=== PATIENT | male | born 1965 | race Caucasian/White ===

== ENCOUNTER → 2024-02-09 | Outpatient (CLI) | payer BC ==
[2024-02-09 11:07] VITALS: BP 127/77; PULSE 88; RESP 16
--- NOTE | 2024-02-09 14:51 | P.PAINPG ---
PQRS Measure Charge Sheet Comment: HISTORY OF PRESENT ILLNESS: A 58 yr old female as a referral from Dr Reyes presents today w severe and chronic neck pain > 3 mo secondary to DDD, spondylosis and facet arthropathy without myelopathy for evaluation. Pt states pain level is provoked at 8 /10 in intensity, constant, localized in the cervical spine, predominantly axial, sharp in character w occasional shooting pain towards the UEs, R> L. Pain is provoked by reading. Pain is alleviated by PT x 6 wks which ended in December 2023, physician guided home exercises/ stretches daily since December 2023, ice, medications (Ibu), topical BioFreeze, repositioning and rest . Cervical disability score at 25. PMH: OA, Hyperlipidemia, GERD, RLS PSH: Quradiceps tendon repair, ORIF, L Knee Arthroscopy SH: Daily tobacco use, Occasional ETOH use, No illicit drug use FH: Non contributory All: See list Meds: See list REVIEW OF ORGAN SYSTEMS: CONSTITUTIONAL: No fevers or chills. No recent weight loss. NEUROLOGICAL: + numbness and tingling along the distal extremities. No seizure disorders or headaches. MUSCULOSKELETAL: + pain PSYCHIATRIC: Denies current depression or suicidal thoughts. Physical Examinations : Constitutional : Cooperative , not in acute distress . Neurologic : Cranial nerve II to XII intact. No focal neurological deficits. Psychiatric : alert & oriented x 3. Matching mood & appropriate affect. Judgment & insight intact. Musculoskeletal : Cervical Spine Motor strength in the deltoid and biceps: Normal right side. Normal Left side Motor strength biceps and the wrist extensors: Normal right side . Normal left side Motor strength in the triceps muscle: Normal right side. Normal left side Deep tendon reflexes: Normal at the biceps. Normal at Brachioradialis. Normal at triceps Vertebral body tenderness to deep palpation over C6 Cervical facet loading test: positive bilaterally Spurling test: positive bilaterally Neck distraction test: positive bilaterally C6-C7 Shelia sign: positive bilaterally Lumbar spine Motor strength lower extremities ,thigh and legs 5/5 Right side , 5/5 Left side Deep tendon reflexes : Normal Knee Jerk. Normal Ankle Jerk Vertebral body tenderness over Chase Test positive Lumbar facet Loading Test: positive Right / positive Left Range of motion of the lumbar spine Flexion 30 degrees, extension 10 degrees Straight Leg Raise test: Left/ Right positive at degrees Kaylah test: positive right / positive left. Severe tenderness over the Sacroiliac joint on the Right / Left sides Gaenslen test: positive bilaterally Seated flexion test: positive bilaterally. Sacral spine : Severe tenderness over the Sacroiliac joint: right side / left side Range of motion: Flexion of the lumbar spine <60 degrees Range of motion: Extension of the lumbar spine <20 degrees Gaenslen's Test positive Kaylah test: positive right side / left side Thigh Thrust Test Sacral Thrust Test Imaging: MRI non contrast of the cervical spine from 01/06/24 reviewed Assessment/ Plan : Cervical spinal stenosis, Cervical DDD Recommendation of STEPHANIE C6-C7 #1. May need a series of injections for optimal pain relief. Risks, benefits of procedure discussed and patient verbalized understanding. Admits to anti- coagulant use or medical history of diabetes. Protocol for discontinuation/ continuation of medications piyush procedure discussed. All questions answered. I have spent greater than 30 minutes on patient care today. Dr Del Rio was available by phone for the evaluation of this patient. The time was used to re view the medical records including relevant urine studies and Prescription history (MAPs), review of the available imaging, evaluation and examination of the patient, coordination of care with the medical staff and if applicable referring physicians, as well as creation of the medical record Controlled Substance Measures - Controlled Substance Measures Is patient prescribed a controlled substance at discharge?: No
== END ==
LOC: PNWHC3 09:27
PROVIDERS: ATTEND Specialist
DX: M50.323 Other cervical disc degeneration at C6-C7 level (principal); M48.02 Spinal stenosis, cervical region; Z72.0 Tobacco use
CPT/HCPCS: 99211

== ENCOUNTER 2024-03-07 11:36 | Day surgery (SDC) | payer BC ==
[2024-03-06 10:03] VITALS: BMI 26.5
[~2024-03-07 11:36] MED LIST: LACTATED RINGERS 1,000 ML IV SCH
[2024-03-07 11:54] VITALS: TEMP 98.6
[2024-03-07] MEDS ORDERED: DEXAMETHASONE SOD PHOSPHATE 10 MG/ML 1 ML VIAL ONE (12:53)
[2024-03-07] MEDS ORDERED: IOPAMIDOL M200 10 ML VIAL ONE (12:53)
[2024-03-07 13:11] VITALS: RESP 18
--- NOTE | 2024-03-07 13:30 | P.PCN ---
Date of Procedure: 03/07/24 Description of Procedure: Date of Procedure: 03/07/24 Description of Procedure: PROCEDURE 1. Cervical epidural steroid injection under fluoroscopic guidance C6/7 2. Cervical epidurogram. PREOPERATIVE DIAGNOSIS: Cervical radiculopathy POSTOPERATIVE DIAGNOSIS: Cervical radiculopathy Imaging: Fluoroscopy was used, images where saved to the medical record ANESTHESIA: local only PROCEDURE DESCRIPTION / TECHNIQUE: The patient was seen and identified in the preoperative area. Risks, benefits, and alternatives were discused with the patient and the patient has consented to the procedure. Risks of the procedure include potential for bleeding, infection, nerve damage, and incomplete pain relief were discussed with the patient. All questions were answered for the patient Patient was taken to the OR and time out was completed. The patient was placed in the prone position on the procedure table. A pillow was placed under the patients chest to increase the cervical interlaminar space. The cervical area was prepped and draped in the usual sterile fashion. Vital signs were closely monitored during the procedure. Using anterior-posterior fluoroscopy, the C6-C7 interlaminar space was identified and the skin over this site was marked and then infiltrated with 1% lidocaine subcutaneously. Subsequently, a 20-gauge 3-1/2-inch Tuohy epidural needle was inserted and advanced toward the epidural space by means of the [id number] technique and guided by AP and lateral fluoroscopy. The correct needle position in the epidural space was verified with the injection of 1 mL of the water soluble contrast dye Isovue-180 and observing an excellent epidurogram with the epidural spread of the dye, after negative aspiration for blood and CSF and in the absence of paresthesias. Again after negative aspiration, a mixture containing 10 mg Dexamethasone and 2 ml of preservative- free normal saline injected and a washout of epidurogram was seen. Needle was withdrawn intact, skin was cleansed, and bandages were applied. Complications: none. Disposition: patient was placed in supine position and transferred to the recovery room area in stable condition and there was no evidence of upper or lower extremity motor or sensory deficit after the procedure patient was discharged from recovery room after discharge criteria met and home discharge instructions was given by the staff and patient will follow with the pain as directed.
[2024-03-07 13:45] VITALS: BP 128/75; PULSE 73
--- NOTE | 2024-03-07 14:01 | FL ---
Fluoroscopy History: M54.12 CERVICAL RADICULOPATHY CERVICAL RADICULOPATHY DR. MONTEMAYOR FL TIME- 4.5 SEC DAP- [id number] mGym2
== END 2024-03-07 13:46 | disposition home or self-care (01) ==
LOC: ORPAIN 11:36
PROVIDERS: ATTEND Hospitalist
DX: M54.12 Radiculopathy, cervical region (principal); Z79.1 Long term (current) use of non-steroidal anti-inflammatories (NSAID)
CPT/HCPCS: 62321

== ENCOUNTER → 2024-03-29 | Outpatient (CLI) | payer BC | LOC: PNWHC3 08:36 | PROVIDERS: ATTEND Specialist | DX: M47.22 Other spondylosis with radiculopathy, cervical region (principal) | CPT/HCPCS: 99211 ==

== ENCOUNTER → 2024-04-18 | Day surgery (SDC) | payer BC ==
[~2024-04-18] MED LIST changes: +DEXAMETHASONE SOD PHOSPHATE 10 MG/ML 1 ML VIAL ONE; +IOPAMIDOL M300 15ML VIAL ONE; +ROPIVACAINE 5MG/ML 20ML VIAL ONE
[2024-04-18 07:17] VITALS: TEMP 98.1
--- NOTE | 2024-04-18 08:48 | P.PCN ---
Description of Procedure: PROCEDURE 1. Injection of radio contrast material into cervical epidural space, cervical epidurogram, interpretation of cervical epidurogram, Cervical epidural steroid injection under fluoroscopic guidance, C6-7 (fluoroscopy images available in the radiology department ) 2. Cervical epidurogram. PREOPERATIVE DIAGNOSIS: 1- Cervical Degenerative Disc Diseases 2- Cervical radiculopathy., 3-cervical spondylosis with cervical Facet arthropathy without myelopathy.4-cervical spinal stenosis POSTOPERATIVE DIAGNOSIS: : 1- Cervical Degenerative Disc Diseases , 2- Cervical radiculopathy. 3-,cervical spondylosis with cervical Facet arthropathy without myelopathy. 4-cervical spinal stenosis ANESTHESIA: Local anesthetics infiltration. In the OR continuous pulse ox, EKG, blood pressure and verbal communication was maintained. EBL : None PROCEDURE INDICATION: The patient with neck pain and radiculitis unresponsive to conservative treatment consents for procedure. Discussed the procedure, alternatives and possible complications which may include increased pain, infection, bleeding, nerve damage, paralysis all of which could be permanent. Patient understands and all questions were answered. PROCEDURE DESCRIPTION : After getting consent patient was taken to the OR , positioned in prone position and time out was completed. A pillow was placed under the patients chest to increase the cervical interlaminar space. The cervical area was prepped and draped in the usual sterile fashion. Using anterior-posterior fluoroscopy, interlaminar space was identified and the skin over this site was marked and then infiltrated with 1% lidocaine subcutaneously. Subsequently, a 20-gauge 3-1/2-inch Tuohy epidural needle was inserted and advanced toward the epidural space with the loss of resistance technique using a syringe filled with preservative-free normal saline and guided by AP and lateral fluoroscopy. Negative CSF, negative blood, negative paresthesia. The correct needle position in the epidural space was verified with the injection of 2 mL of the water soluble contrast dye Isovue-200 and observing an excellent epidurogram with the epidural spread of the dye, after repeat negative aspiration 3 mL solution was injected which consists of 1 mL of preservative-free normal saline mixed with 2 mL of 20 mg dexamethasone and a washout of epidurogram was seen. Needle was withdrawn intact, skin was cleansed, and bandages were applied. Disposition: Patient tolerated the procedure well. No complication. Patient was placed in supine position and transferred to the recovery room area in stable condition and there was no evidence of upper or lower extremity motor or sensory deficit after the procedure patient was discharged from recovery room after discharge criteria met and home discharge instructions was given by the staff and patient will follow with the pain clinic in 2-4 weeks
[2024-04-18 08:53] VITALS: BP 137/86; PULSE 79; RESP 16
--- NOTE | 2024-05-16 18:20 | FL ---
EXAMINATION TYPE: FL guided pain mgmt statistic DATE OF EXAM: 04/18/2024 8:41 AM COMPARISON: Pre Operative Images if available both CT/MRI or plain film CLINICAL INDICATION: Male, 58 years old with history of CERVICAL EPI; TECHNIQUE: FL guided pain mgmt statistic, multiple fluoroscopic images provided for procedure. Total fluoroscopy time: 6.8 seconds Total submitted images to PACS: 2 DAP: [id number] mGym2 Gycm2 uGym2 cGycm2 or equivalent. FINDINGS: Fluoroscopic images during injection for pain management demonstrate multilevel degeneration changes throughout the spine. No evidence for fracture. No acute process identified. IMPRESSION: 1. No evidence for intraoperative complication. 2. Please see the operative/procedural note for further details. [facility], , 05/16/2024 6:17 PM
== END ==
LOC: ORPAIN 06:57
PROVIDERS: ATTEND Pain Medicine Interventional Pain Medicine
DX: M47.22 Other spondylosis with radiculopathy, cervical region (principal); M48.02 Spinal stenosis, cervical region; M50.123 Cervical disc disorder at C6-C7 level with radiculopathy
CPT/HCPCS: 62321

== ENCOUNTER → 2024-05-10 | Outpatient (CLI) | payer BC ==
[2024-05-10 09:38] VITALS: BP 127/79; PULSE 84; RESP 16
--- NOTE | 2024-05-10 15:31 | P.PAINPG ---
PQRS Measure Charge Sheet Comment: HISTORY OF PRESENT ILLNESS: A 58 yr old female presents today w severe and chronic neck pain > 3 mo secondary to radiculpathy, spondylosis and facet arthropathy without myelopathy for evaluation s/p STEPHANIE C6-C7 #2. Pt states he experienced 60 % pain relief x 3 wks s/p procedure. Pt states pain level is provoked at 8 /10 in intensity, constant, localized in the cervical spine, predominantly axial, sharp in character w occasional shooting pain towards the UEs, R> L. Pain is provoked by reading. Pain is alleviated by PT x 6 wks which ended in December 2023, physician guided home exercises/ stretches daily since December 2023, traction w his chiropractor semi monthly since Mar 2024 till present, ice, medications, t opical, repositioning and rest . Interventional procedures include STEPHANIE C6-C7 x2 Medications include Ibu, BioFreeze REVIEW OF ORGAN SYSTEMS: CONSTITUTIONAL: No fevers or chills. No recent weight loss. NEUROLOGICAL: + numbness and tingling along the distal extremities. No seizure disorders or headaches. MUSCULOSKELETAL: + pain PSYCHIATRIC: Denies current depression or suicidal thoughts. Physical Examinations : Constitutional : Cooperative , not in acute distress . Neurologic : Cranial nerve II to XII intact. No focal neur ological deficits. Psychiatric : alert & oriented x 3. Matching mood & appropriate affect. Judgment & insight intact. Musculoskeletal : Cervical Spine Motor strength in the deltoid and biceps: Normal right side. Normal Left side Motor strength biceps and the wrist extensors: Normal right side . Normal left side Motor strength in the triceps muscle: Normal right side. Normal left side Deep tendon reflexes: Normal at the biceps. Normal at Brachioradialis. Normal at triceps Vertebral body tenderness to deep palpation over C6 Cervical facet loading test: positive bilaterally Spurling test: positive bilaterally Neck distraction test: positive bilaterally C6-C7 Shelia sign: positive bilaterally Lumbar spine Motor strength lower extremities ,thigh and legs 5/5 Right side , 5/5 Left side Deep tendon reflexes : Normal Knee Jerk. Normal Ankle Jerk Vertebral body tenderness over Chase Test positive Lumbar facet Loading Test: positive Right / positive Left Range of motion of the lumbar spine Flexion 30 degrees, extension 10 degrees Straight Leg Raise test: Left/ Right positive at degrees Kaylah test: positive right / positive left. Severe tenderness over the Sacroiliac joint on the Right / Left sides Gaenslen test: positive bilaterally Seated flexion test: positive bilaterally. Sacral spine : Severe tenderness over the Sacroiliac joint: right side / left side Range of motion: Flexion of the lumbar spine <60 degrees Range of motion: Extension of the lumbar spine <20 degrees Gaenslen's Test positive Kaylah test: positive right side / left side Thigh Thrust Test Sacral Thrust Test Imaging: MRI non contrast of the cervical spine from 01/06/24 reviewed Assessment/ Plan : Cervical spinal stenosis, Cervical radiculopathy Recommendation of STEPHANIE C6-C7 #3. May need a series of injections for optimal pain relief. Risks, benefits of procedure discussed and patient verbalized understanding. Admits to anti- coagulant use or medical history of diabetes. Protocol for discontinuation/ continuation of medications piysuh procedure discussed. All questions answered. I have spent greater than 30 minutes on patient care today. Dr Del Rio was available by phone for the evaluation of this patient. The time was used to review the medical records including relevant urine studies and Prescription history (MAPs), review of the available imaging, evaluation and examination of the patient, coordination of care with the medical staff and if applicable refer ring physicians, as well as creation of the medical record - Pain Location Bilateral Arm Pharmacological Interventions: PRN Medication PQRS Narrative: Hx Alcohol Use (MH) No Home Medications: Ambulatory Orders Ibuprofen [Motrin] 800 mg PO Q8H PRN 03/06/24 Pantoprazole [Protonix] 40 mg PO DAILY 03/06/24 Controlled Substance Measures - Controlled Substance Measures Is patient prescribed a controlled substance at discharge?: No
== END ==
LOC: PNWHC3 09:11
PROVIDERS: ATTEND Specialist
DX: M54.12 Radiculopathy, cervical region
CPT/HCPCS: 99211

== ENCOUNTER 2024-05-30 07:27 | Day surgery (SDC) | payer BC ==
[2024-05-26 14:36] VITALS: BMI 26.6
[~2024-05-30 07:27] MED LIST changes: -DEXAMETHASONE SOD PHOSPHATE 10 MG/ML 1 ML VIAL ONE; -IOPAMIDOL M300 15ML VIAL ONE; -ROPIVACAINE 5MG/ML 20ML VIAL ONE
[2024-05-30 07:55] VITALS: TEMP 98.1
[2024-05-30] MEDS ORDERED: IOPAMIDOL M200 10 ML VIAL ONE (08:18)
[2024-05-30] MEDS ORDERED: DEXAMETHASONE SOD PHOSPHATE 10 MG/ML 1 ML VIAL ONE (08:18)
--- NOTE | 2024-05-30 08:24 | P.PCN ---
Date of Procedure: 05/30/24 Procedure(s) Performed: . PROCEDURE 1. Cervical epidural steroid injection under fluoroscopic guidance, C6-7 (fluoroscopy images available in the radiology department ) 2. Cervical epidurogram. PREOPERATIVE DIAGNOSIS: 1- Cervical Degenerative Disc Diseases 2- Cervical radiculopathy. POSTOPERATIVE DIAGNOSIS: : 1- Cervical Degenerative Disc Diseases , 2- Cervical radiculopathy. ANESTHESIA: Local anesthesia with lidocaine 1% 3 ml only EBL 0 PROCEDURE INDICATION: The patient with neck pain and radiculitis unresponsive to conservative treatment consents for procedure. PROCEDURE DESCRIPTION / TECHNIQUE: The patient was seen and identified in the preoperative area. Risks, benefits, complications, including but not limited to infections ,bleeding , allergic reactions to the medications ,and not complete pain releife, and alternatives were discussed with the patient, the patient agreed to proceed with the procedure and signed the consent. Patient was taken to the OR and time out was completed. The patient was placed in the prone position on the procedure table. A pillow was placed under the patients chest to increase the cervical interlaminar space. The cervical area was prepped and draped in the usual sterile fashion. Vital signs were closely monitored during the procedure. Using anterior-posterior fluoroscopy, the C6-7 interlaminar space was identified and the skin over this site was marked and then infiltrated with 1% lidocaine subcutaneously. Subsequently, a 20-gauge 3-1/2-inch Tuohy epidural needle was inserted and advanced toward the epidural space by means of the ``hanging-drop technique and guided by AP and lateral fluoroscopy. The correct needle position in the epidural space was verified with the injection of 2 mL of the water soluble contrast dye Isovue-200 and observing an excellent epidurogram with the epidural spread of the dye, after negative aspiration for blood and CSF and in the absence of paresthesias. then, mixture containing 20 mg Dexamethasone and 2 ml of preservative-free normal saline injected and a washout of epidurogram was seen. Needle was withdrawn intact, skin was cleansed, and bandages were applied. Complications= none. Disposition= patient was placed in supine position and transferred to the recovery room area in stable condition and there was no evidence of upper or lower extremity motor or sensory deficit after the procedure patient was discharged from recovery room after discharge criteria met and home discharge instructions was given by the staff and patient will follow with the pain clinic in 2-4 weeks
[2024-05-30 08:28] VITALS: RESP 16
[2024-05-30 08:40] VITALS: BP 129/81; PULSE 83
--- NOTE | 2024-05-30 08:43 | FL ---
EXAMINATION TYPE: FL guided pain mgmt statistic DATE OF EXAM: 05/30/2024 8:28 AM COMPARISON: Pre Operative Images if available both CT/MRI or plain film CLINICAL INDICATION: Male, 58 years old with history of PAIN; TECHNIQUE: FL guided pain mgmt statistic, multiple fluoroscopic images provided for procedure. Total fluoroscopy time: 1.5 seconds Total submitted images to PACS: 1 DAP: 0.30383 mGym2 Gycm2 uGym2 cGycm2 or equivalent. FINDINGS: Fluoroscopic images during injection for pain management demonstrate multilevel degeneration changes throughout the spine. No evidence for fracture. No acute process identified. IMPRESSION: 1. No evidence for intraoperative complication. 2. Please see the operative/procedural note for further details. [facility], , 05/30/2024 8:41 AM
== END 2024-05-30 08:41 | disposition home or self-care (01) ==
LOC: ORPAIN 07:27
PROVIDERS: ATTEND Specialist
DX: M50.123 Cervical disc disorder at C6-C7 level with radiculopathy (principal)
CPT/HCPCS: 62321

== ENCOUNTER → 2024-06-21 | Outpatient (CLI) | payer BC ==
[2024-06-21 09:58] VITALS: BP 145/82; PULSE 70; RESP 16; TEMP 97.5
--- NOTE | 2024-06-21 15:14 | P.PAINPG ---
PQRS Measure Charge Sheet Comment: HISTORY OF PRESENT ILLNESS: A 58 yr old female presents today w severe and chronic neck pain > 3 mo secondary to radiculpathy, spondylosis and facet arthropathy without myelopathy for evaluation s/p STEPHANIE C6-C7 #3. Pt states he experienced 80 % pain relief x 3 wks s/p procedure. Pt states pain level is provoked at 2-5 /10 in intensity, constant, localized in the cervical spine, predominantly axial, sharp in character w occasional shooting pain towards the UEs, R> L. Pain is provoked by reading. Pain is alleviated by PT x 6 wks which ended in December 2023, physician guided home exercises/ stretches daily since December 2023, traction w his chiropractor semi monthly since Mar 2024 till present, ice, medications, topical, repositioning and rest . Interventional procedures include STEPHANIE C6-C7 x3 Medications include Ibu, BioFreeze REVIEW OF ORGAN SYSTEMS: CONSTITUTIONAL: No fevers or chills. No recent weight loss. NEUROLOGICAL: + numbness and tingling along the distal extremities. No seizure disorders or headaches. MUSCULOSKELETAL: + pain PSYCHIATRIC: Denies current depression or suicidal thoughts. Physical Examinations : Constitutional : Cooperative , not in acute distress . Neurologic : Cranial nerve II to XII intact. No focal ne urological deficits. Psychiatric : alert & oriented x 3. Matching mood & appropriate affect. Judgment & insight intact. Musculoskeletal : Cervical Spine Motor strength in the deltoid and biceps: Normal right side. Normal Left side Motor strength biceps and the wrist extensors: Normal right side . Normal left side Motor strength in the triceps muscle: Normal right side. Normal left side Deep tendon reflexes: Normal at the biceps. Normal at Brachioradialis. Normal at triceps Vertebral body tenderness to deep pa lpation over C6 Cervical facet loading test: positive bilaterally Spurling test: positive bilaterally Neck distraction test: positive bilaterally C6-C7 Shelia sign: positive bilaterally Lumbar spine Motor strength lower extremities ,thigh and legs 5/5 Right side , 5/5 Left side Deep tendon reflexes : Normal Knee Jerk. Normal Ankle Jerk Vertebral body tenderness over Chase Test positive Lumbar facet Loading Test: positive Right / positive Left Range of motion of the lumbar spine Flexion 30 degrees, extension 10 degrees Straight Leg Raise test: Left/ Right positive at degrees Kaylah test: positive right / positive left. Severe tenderness over the Sacroiliac joint on the Right / Left sides Jeannielen test: positive bilaterally Seated flexion test: positive bilaterally. Sacral spine : Severe tenderness over the Sacroiliac joint: right side / left side Range of motion: Flexion of the lumbar spine <60 degrees Range of motion: Extension of the lumbar spine <20 degrees Gaenslen's Test positive Kaylah test: positive right side / left side Thigh Thrust Test Sacral Thrust Test Imaging: MRI non contrast of the cervical spine from 01/06/24 reviewed Assessment/ Plan : Cervical spinal stenosis, Cervical radiculopathy Will manage residual pain and may RTC on an as needed basis. All questions answered. I have spent greater than 30 minutes on patient care today. Dr Del Rio was available by phone for the evaluation of this patient. The time was used to review the medical records including relevant urine studies and Prescription history (MAPs), review of the available imaging, evaluation and examination of the patient, coordination of care with the medical staff and if applicable referring physicians, as well as creation of the medical record PQRS Narrative: Hx Alcohol Use (MH) No Home Medications: Ambulatory Orders Ibuprofen [Motrin] 800 mg PO Q8H PRN 03/06/24 Pantoprazole [Protonix] 40 mg PO DAILY 03/06/24 Controlled Substance Measures - Controlled Substance Measures Is patient prescribed a controlled substance at discharge?: No
== END ==
LOC: PNWHC3 09:04
PROVIDERS: ATTEND Specialist
DX: M47.22 Other spondylosis with radiculopathy, cervical region (principal); M48.02 Spinal stenosis, cervical region
CPT/HCPCS: 99211

== ENCOUNTER → 2024-11-23 | Outpatient (CLI) | payer BC ==
[2024-11-23 14:10] VITALS: BP 131/83; PULSE 89; RESP 19; TEMP 96.8
--- NOTE | 2024-11-23 14:55 | XR ---
EXAMINATION TYPE: XR knee limited RT DATE OF EXAM: 11/23/2024 CLINICAL INDICATION: Male, 58 years old with history of M17.9, pain TECHNIQUE: Frontal and lateral views of the knee were obtained. COMPARISON: None. FINDINGS: There is no acute fracture/dislocation evident in the right knee. Bchj-ec-zlrexowd tricomp artment joint space loss without significant spurring. There is bony projection anterior superior pa tella at the distal quadriceps tendon insertion. The overlying soft tissue appears unremarkable. IMPRESSION: As above. [facility], , 11/23/2024 2:52 PM
--- NOTE | 2024-11-23 15:51 | P.PAINPG ---
Objective - Vital Signs Vital signs: Intake & Output 11/22/24 11/23/24 11/23/24 18:59 06:59 18:59 Weight 81.647 kg PQRS Measure Charge Sheet Comment: HISTORY OF PRESENT ILLNESS: A 58 yr old female presents today w severe and chronic R knee and neck pain > 3 mo secondary to R Knee DJD, radiculpathy, spondylosis and facet arthropathy without myelopathy for evaluation. Pt states pain level is provoked at 9-10 /10 in intensity, constant, localized in the cervical spine, predominantly axial, sharp in character w occasional shooting pain towards the UEs, R> L. Pain is provoked by reading. Pain is alleviated by PT x 6 wks which ended in December 2023, physician guided home exercises/ stretches daily since December 2023, traction w his chiropractor semi monthly since Mar 2024 till present, ice, medications, topical, Cannabis use, repositioning and rest . Interventional procedures include STEPHANIE C6-C7 x3 Medications include Ibu, BioFreeze, Cannabis use REVIEW OF ORGAN SYSTEMS: CONSTITUTIONAL: No fevers or chills. No recent weight loss. NEUROLOGICAL: + numbness and tingling along the distal extremities. No seizure disorders or headaches. MUSCULOSKELETAL: + pain PSYCHIATRIC: Denies current depression or suicidal thoughts. Physical Examinations : Constitutional : Cooperative , not in acute distress . Neurologic : Cranial nerve II to XII intact. No focal neurological deficits. Psychiatric : alert & oriented x 3. Matching mood & appropriate affect. Judgment & insight intact. Musculoskeletal : Cervical Spine Motor strength in the deltoid and biceps: Normal right side. Normal Left side Motor strength biceps and the wrist extensors: Normal right side . Normal left side Motor strength in the triceps muscle: Normal right side. Normal left side Deep tendon reflexes: Normal at the biceps. Normal at Brachioradialis. Normal at triceps Vertebral body tenderness to deep palpation over C6 Cervical facet loading test: positive bilaterally Spurling test: positive bilaterally Neck distraction test: positive bilaterally C6-C7 Shelia sign: positive bilaterally Lumbar spine +R Knee diffuse TTP Motor strength lower extremities ,thigh and legs 5/5 Right side , 5/5 Left side Deep tendon reflexes : Normal Knee Jerk. Normal Ankle Jerk Vertebral body tenderness over Chase Test positive Lumbar facet Loading Test: positive Right / positive Left Range of motion of the lumbar spine Flexion 30 degrees, extension 10 degrees Straight Leg Raise test: Left/ Right positive at degrees Kaylah test: positive right / positive left. Severe tenderness over the Sacroiliac joint on the Right / Left sides Gaenslen test: positive bilaterally Seated flexion test: positive bilaterally. Sacral spine : Severe tenderness over the Sacroiliac joint: right side / left side Range of motion: Flexion of the lumbar spine <60 degrees Range of motion: Extension of the lumbar spine <20 degrees Gaenslen's Test positive Kaylah test: positive right side / left side Thigh Thrust Test Sacral Thrust Test Imaging: MRI non contrast of the cervical spine from 01/06/24 reviewed Assessment/ Plan : Cervical spinal stenosis, Cervical radiculopathy, R Knee DJD Recommendation of R knee x ray M17.9. Short course of Kite 10/325mg #18 NR. Use, side effects, adverse reactions and safe storage discussed. Patient aware to discontinue cannabis use while on Kite. Acknowledged understanding. All questions answered. I have spent greater than 30 minutes on patient care today. Dr Del Rio was available by phone for the evaluation of this patient. The time was used to review the medical records including relevant urine studies and Prescription history (MAPs), review of the available imaging, evaluation and examination of the patient, coordination of care with the medical staff and if applicable referring physicians, as well as creation of the medical record PQRS Narrative: Hx Alcohol Use (MH) No Home Medications: Ambulatory Orders Ibuprofen [Motrin] 800 mg PO Q8H PRN 03/06/24 Pantoprazole [Protonix] 40 mg PO DAILY 03/06/24 HYDROcodone/APAP 10-325MG [Kite 10-325] 1 tab PO Q4HR PRN 3 Days #18 tab 11/23/24 Controlled Substance Measures - Controlled Substance Measures Is patient prescribed a controlled substance at discharge?: Yes When asked, does pt state using other controlled substances?: No If prescribed controlled substance>3 days was MAPS reviewed?: Prescribed <3 Days
== END ==
LOC: PNWHC3 13:46
PROVIDERS: ATTEND Specialist
DX: M54.12 Radiculopathy, cervical region (principal); M17.11 Unilateral primary osteoarthritis, right knee; M48.02 Spinal stenosis, cervical region
CPT/HCPCS: 99211

== ENCOUNTER → 2025-01-31 | Outpatient (CLI) | payer BC ==
[2025-01-31 11:07] VITALS: BP 126/80; PULSE 95; RESP 16; TEMP 97.9
--- NOTE | 2025-01-31 15:39 | P.PAINPG ---
Objective - Vital Signs Vital signs: Vital Signs Temp 97.9 F 01/31/25 10:58 Pulse 95 01/31/25 10:58 Resp 16 01/31/25 10:58 BP 126/80 01/31/25 10:58 Pulse Ox 98 01/31/25 10:58 FiO2 Intake & Output 01/30/25 01/31/25 01/31/25 18:59 06:59 18:59 Weight 78.018 kg PQRS Measure Charge Sheet Mode of Arrival: Ambulatory Comment: HISTORY OF PRESENT ILLNESS: A 59 yr old female presents today w severe and chronic R knee and neck pain > 3 mo secondary to R Knee DJD, radiculpathy, spondylosis and facet arthropathy without myelopathy for evaluation. Pt states pain level is provoked at 9-10 /10 in intensity, constant, localized in the cervical spine, predominantly axial, sharp in character w occasional shooting pain towards the UEs, R> L. Pain is provoked by reading. Pain is alleviated by PT x 6 wks which ended in December 2023, physician guided home exercises/ stretches daily since December 2023, traction w his chiropractor semi monthly since Mar 2024 till present, ice, medications, topical, Cannabis use, repositioning and rest . He was called by his orthopedic surgeon about a meniscal tear and that it will require surgery. Interventional procedures include STEPHANIE C6-C7 x3 Medications include Ibu, BioFreeze, Cannabis use REVIEW OF ORGAN SYSTEMS: CONSTITUTIONAL: No fevers or chills. No recent weight loss. NEUROLOGICAL: + numbness and tingling along the distal ex tremities. No seizure disorders or headaches. MUSCULOSKELETAL: + pain PSYCHIATRIC: Denies current depression or suicidal thoughts. Physical Examinations : Constitutional : Cooperative , not in acute distress . Neurologic : Cranial nerve II to XII intact. No focal neurological deficits. Psychiatric : alert & oriented x 3. Matching mood & appropriate affect. Judgment & insight intact. Musculoskeletal : Cervical Spine Motor strength in the deltoid and biceps: Normal right side. Normal Left side Motor strength biceps and the wrist extensors: Normal right side . Normal left side Motor strength in the triceps muscle: Normal right side. Normal left side Deep tendon reflexes: Normal at the biceps. Normal at Brachioradialis. Normal at triceps Vertebral body tenderness to deep palpation over C6 Cervical facet loading test: positive bilaterally Spurling test: positive bilaterally Neck distraction test: positive bilaterally C6-C7 Shelia sign: positive bilaterally Lumbar spine +R Knee diffuse TTP Motor strength lower extremities ,thigh and legs 5/5 Right side , 5/5 Left side Deep tendon reflexes : Normal Knee Jerk. Normal Ankle Jerk Vertebral body tenderness over Chase Test positive Lumbar facet Loading Test: positive Right / positive Left Range of motion of the lumbar spine Flexion 30 degrees, extension 10 degrees Straight Leg Raise test: Left/ Right positive at degrees Kaylah test: positive right / positive left. Severe tenderness over the Sacroiliac j oint on the Right / Left sides Gaenslen test: positive bilaterally Seated flexion test: positive bilaterally. Sacral spine : Severe tenderness over the Sacroiliac joint: right side / left side Range of motion: Flexion of the lumbar spine <60 degrees Range of motion: Extension of the lumbar spine <20 degrees Gaenslen's Test positive Kaylah test: positive right side / left side Thigh Thrust Test Sacral Thrust Test Imaging: MRI non contrast of the cervical spine from 01/06/24 reviewed Assessment/ Plan : Cervical spinal stenosis, Cervical radiculopathy, R Knee DJD Recommendation of follow up within 3-4 wks and/or w orthopedic surgeon. Patient aware to discontinue cannabis use while on [place]. Acknowledged understanding. All questions answered. I have spent greater than 30 minutes on patient care today. Dr Del Rio was available by phone for the evaluation of this patient. The time was used to review the medical records including relevant urine studies and Prescription history (MAPs), review of the available imaging, evaluation and examination of the patient, coordination of care with the medical staff and if applicable referring physicians, as well as creation of the medical record - Pain Location Right Knee Non-Pharmacological Interventions: Chiropractic Treatment, Ice, Inactivity Pharmacological Interventions: PRN Medication, Scheduled Medication PQRS Narrative: Blood Pressure 126/80 Pain Intensity [Right Knee] 4 Scale Used Numeric (1 - 10) Hx Alcohol Use (MH) Yes Home Medications: Ambulatory Orders Ibuprofen [Motrin] 800 mg PO Q8H PRN 03/06/24 Pantoprazole [Protonix] 40 mg PO DAILY 03/06/24 HYDROcodone/APAP 10-325MG [[place] 10-325] 1 tab PO Q4HR PRN 3 Days #18 tab 11/23/24 Controlled Substance Measures - Controlled Substance Measures Is patient prescribed a controlled substance at discharge?: No
== END ==
LOC: PNWHC3 10:40
PROVIDERS: ATTEND Specialist
DX: M47.22 Other spondylosis with radiculopathy, cervical region (principal); M17.11 Unilateral primary osteoarthritis, right knee; M48.02 Spinal stenosis, cervical region
CPT/HCPCS: 99211